=== PATIENT | female | born 1930 | race Caucasian/White ===

== ENCOUNTER 2020-05-13 16:42 | Inpatient (IN) | payer OTHER, MEDICAID ==
[~2020-05-13] VITALS: Ht 152.4 cm; Wt 89.8 kg
[2020-05-13 18:06] LABS: CALCIUM 8.3 mg/dL (8.5-10.1); CARBON DIOXIDE 29.6 mmol/L (21-32); CHLORIDE SERUM 103 mmol/L (98-107); CREATININE SERUM 0.9 mg/dL (0.6-1.0); GLUCOSE SERUM 117 mg/dL (74-106); POTASSIUM SERUM 4.1 mmol/L (3.5-5.1); SODIUM SERUM 139 mmol/L (136-145)
[2020-05-13 18:16] LABS: BASOPHIL % 0.6 % (0.2-1.3); PLATELET COUNT 292 x10^3mcL (179-408)
[2020-05-13 18:17] LABS: T3 TOTAL 0.91 ng/mL
[2020-05-13 18:18] LABS: RED CELL DISTRIBUTION WIDTH 19.9 % (12.3-17.7)
[2020-05-13 18:23] LABS: ALBUMIN 3.2 g/dL (3.4-5.0); ALKALINE PHOSPHATASE 92 U/L (46-116); ALT/SGPT 17 U/L (14-59); AST/SGOT 18 U/L (15-37); BILIRUBIN TOTAL 0.2 mg/dL (0.20-1.00); FREE T4 0.96 ng/dL (0.76-1.46); FREE THYROXINE INDEX 1.7 ug/dL (1.4-4.5); T4(THYROXINE) 5.5 ug/dL (4.7-13.3); TOTAL PROTEIN, SERUM 7.3 g/dL (6.4-8.2)
[2020-05-13 19:18] LABS: RED BLOOD CELLS 3.81 M/mm3 (4.10-5.10)
[2020-05-13 19:35] LABS: CHOLESTEROL/HDL RATIO 3.8; PHOSPHOROUS 2.9 mg/dL (2.5-4.9)
[2020-05-13 19:38] LABS: IRON 14 ug/dL (50-170); TOTAL IRON BINDING CAPACITY 452 ug/dL (250-450)
[2020-05-13 20:14] VITALS: BP 133/63
[2020-05-13] MEDS ORDERED: PROAIR HFA8.5 GM (20:36)
[2020-05-13 21:07] LABS: microscopic required? NO
[2020-05-13 21:18] LABS: urine erythrocyte NEGATIVE (NEGATIVE)
[2020-05-13 21:33] LABS: AMPHETAMINE QUAL UR NONE DETECTED (See below)
[2020-05-13 22:06] VITALS: BP 133/63
[2020-05-13 22:15] VITALS: Ht 152.4 cm; Wt 89.8 kg
[2020-05-14 06:14] VITALS: BP 136/82
[2020-05-14 06:55] LABS: BASOPHIL % 0.4 % (0.2-1.3); PLATELET COUNT 284 x10^3mcL (179-408)
[2020-05-14 06:57] LABS: CALCIUM 8.5 mg/dL (8.5-10.1); CARBON DIOXIDE 28.4 mmol/L (21-32); CHLORIDE SERUM 102 mmol/L (98-107); CREATININE SERUM 0.8 mg/dL (0.6-1.0); GLUCOSE SERUM 93 mg/dL (74-106); POTASSIUM SERUM 4.1 mmol/L (3.5-5.1); SODIUM SERUM 136 mmol/L (136-145)
[2020-05-14 07:48] LABS: RED CELL DISTRIBUTION WIDTH 21.3 % (12.3-17.7)
[2020-05-14 08:00] VITALS: BP 121/77
[2020-05-14 12:00] VITALS: BP 126/71
[2020-05-14 16:06] VITALS: BP 136/86
[2020-05-14 21:25] VITALS: BP 117/69
[2020-05-15 06:31] VITALS: BP 114/63
[2020-05-15 06:48] LABS: CALCIUM 8.3 mg/dL (8.5-10.1); CHLORIDE SERUM 103 mmol/L (98-107); CREATININE SERUM 0.8 mg/dL (0.6-1.0); GLUCOSE SERUM 99 mg/dL (74-106); MAGNESIUM 2.1 mg/dL (1.8-2.4); PHOSPHOROUS 2.8 mg/dL (2.5-4.9); POTASSIUM SERUM 3.4 mmol/L (3.5-5.1); SODIUM SERUM 138 mmol/L (136-145)
[2020-05-15 07:11] LABS: BASOPHIL % 0.6 % (0.2-1.3); PLATELET COUNT 306 x10^3mcL (179-408)
[2020-05-15 07:16] LABS: RED CELL DISTRIBUTION WIDTH 21.3 % (12.3-17.7)
[2020-05-15 08:10] VITALS: BP 128/71
[2020-05-15 08:39] VITALS: BP 120/75
[2020-05-15] MEDS ORDERED: PROTONIX40 MG PO (11:48)
[2020-05-15] MEDS ORDERED: FER300 PO (11:49)
[2020-05-15] MEDS ORDERED: CLARITHROMYCIN500 M1 PO (12:10)
[2020-05-15] MEDS ORDERED: AUG500 PO (12:14)
[2020-05-15 12:24] VITALS: BP 126/74
[2020-05-15] MEDS ORDERED: MIRALAX17 GM PO (15:48)
[2020-05-15] MEDS ORDERED: HIB240 TOP (15:52)
[2020-05-15] MEDS ORDERED: BACO TOP (15:53)
[2020-05-15 17:11] VITALS: BP 126/74
[2020-05-15 18:07] VITALS: BP 127/72
== END 2020-05-15 19:33 | disposition home or self-care (01) | DRG 391 ==
LOC: ED 16:42 → MU 18:47
PROVIDERS: Emergency Medicine; Internal Medicine; ADMIT Internal Medicine; ATTEND Internal Medicine
PROC: 30233N1 Transfusion of Nonautologous Red Blood Cells into Peripheral Vein, Percutaneous Approach (ICD-10-PCS; principal; 2020-05-13)
PROC: 0DJD8ZZ Inspection of Lower Intestinal Tract, Via Natural or Artificial Opening Endoscopic (ICD-10-PCS; 2020-05-15)
PROC: 0DB68ZX Excision of Stomach, Via Natural or Artificial Opening Endoscopic, Diagnostic (ICD-10-PCS; 2020-05-15 07:30)
PROC: 0DB78ZX Excision of Stomach, Pylorus, Via Natural or Artificial Opening Endoscopic, Diagnostic (ICD-10-PCS; 2020-05-15 07:30)
DX: K44.9 Diaphragmatic hernia without obstruction or gangrene (principal); G93.41 Metabolic encephalopathy; K22.10 Ulcer of esophagus without bleeding; E44.1 Mild protein-calorie malnutrition; Z68.41 Body mass index [BMI] 40.0-44.9, adult; Z20.822 Contact with and (suspected) exposure to COVID-19; B95.62 Methicillin resistant Staphylococcus aureus infection as the cause of diseases classified elsewhere; J44.9 Chronic obstructive pulmonary disease, unspecified; D50.9 Iron deficiency anemia, unspecified; E66.01 Morbid (severe) obesity due to excess calories; Z90.49 Acquired absence of other specified parts of digestive tract; G31.84 Mild cognitive impairment of uncertain or unknown etiology; K59.00 Constipation, unspecified; K29.70 Gastritis, unspecified, without bleeding; K64.4 Residual hemorrhoidal skin tags; K57.30 Diverticulosis of large intestine without perforation or abscess without bleeding
CPT/HCPCS: 43235; 45378; 83880; 84439; 97530-GP; C9113; G0378; J1200; J1610; J2250; J2310; J2405; J3010; J3490; J7050; P9016